=== PATIENT | female | born 1935 | race Caucasian/White ===

== ENCOUNTER 2017-12-30 22:30 | Inpatient (IN) | payer MEDICARE, SELFPAY ==
[2017-12-30 22:32] VITALS: BP 144/85; PULSE 62; RESP 16; O2SAT 95; BMI 30.1
--- NOTE | 2017-12-30 22:47 | RAD_ITS ---
STUDY: X-RAY CHEST REASON FOR EXAM: Female, 82 years old. Status post fall. Preop. TECHNIQUE: Single AP portable view of the chest. COMPARISON: 06/15/2016. FINDINGS: There is mild chronic interstitial prominence in the lungs. There is no demonstrated acute pulmonary infiltrate. There is no demonstrated pleural abnormality. Normal size heart. Normal mediastinum and wesly. Normal visualized pulmonary arteries. There is atherosclerotic calcification of the aortic arch with tortuosity. Normal visualized thoracic spine. Normal visualized ribs, clavicles, and shoulders. There is no demonstrated abnormality of the visualized soft tissue structures of the upper abdomen. RAD/Chest 1 View (Portable) IMPRESSION: Mild chronic interstitial changes. No evidence for acute cardiopulmonary pathology. Electronically Signed: Maxx Jarvis MD at 0:12 EDT , Service support ,
--- NOTE | 2017-12-30 22:48 | EKG12_ITS ---
Test Reason : FALL Blood Pressure : / mmHG Vent. Rate : 059 BPM Atrial Rate : 059 BPM P-R Int : 152 ms QRS Dur : 084 ms QT Int : 410 ms P-R-T Axes : 076 015 071 degrees QTc Int : 405 ms Sinus bradycardia Otherwise normal ECG Confirmed by HILL TOLEDO, KAJAL ([id number]), editor farm journal DISHA ARCOS ([id number]) on 01/01/2018 1:43:07 PM Referred By: RADHA Confirmed By:KAJAL ALEJANDRE MD
--- NOTE | 2017-12-30 22:49 | RAD_ITS ---
STUDY: X-RAY - PELVIS AND LEFT HIP REASON FOR EXAM: Female, 82 years old. Status post fall. Pain. TECHNIQUE: Radiological exam, hip, unilateral, with pelvis, 3 views. COMPARISON: None. FINDINGS: There is a non-specific bowel gas pattern. Normal visualized soft tissue structures. Normal bilateral iliac wings, sacroiliac joints and visualized sacrum. Normal bilateral superior and inferior pubic rami. Normal pubic symphysis. Normal bilateral ischial tuberosities. There is an acute traumatic fracture through the base of the left femoral neck with impaction into the intertrochanteric region, and with angulation convex laterally. Normal visualized femoral head. Normal acetabulum. There is mild articular joint space narrowing of the hip. RAD/Hip 2-3 Views with Pelvis IMPRESSION: Impacted and angulated fracture through the base of the left femoral neck. Mild degenerative arthrosis of the left hip. Electronically Signed: Maxx Jarvis MD at 0:17 EDT , Service support ,
[2017-12-30] MEDS: 0.9% Normal Saline 1,000 ML 150 ML IV (23:00)
[2017-12-30] MEDS: HYDROmorphone 1 MG/ML Syringe 0.5 MG IV (23:00)
[2017-12-30] MEDS: Ondansetron 4 MG/2 ML Vial IV (23:00)
--- NOTE | 2017-12-30 23:18 | ED.DCSUM_ITS ---
- ER Visit Summary Date of Service: 12/30/17 Chief Complaint: Injury left hip status post fall History of Present Illness: The patient is a 82 F who attempted to ambulate without walker. She fell. She injured her left hip. She was unable to get up from the floor. She states she did hit her head on the bed frame. She denies loss consciousness, headache or being dazed. She denies any nausea or vomiting presently. She states she was nauseous initially secondary to the pain. She denies any ocular, visual or auditory symptoms. She 90 trouble with speech or swallowing. She denies neck pain. She denies paresthesia, anesthesia motor weakness. She denies chest pain, palpitations or rapid heart rate. She denies shortness of breath, cough, orthopnea or PND. She denies any abdominal pain. She denies back pain. She is on no anticoagulant and denies bruising easily. She denies angioedema or swelling. She reports allergy to morphine. Reaction is unknown. She denies any urologic symptoms. She denies neck or back pain. Physical Examination: Pleasant elderly woman who appears uncomfortable. Blood pressure is elevated 144/85. Head is atraumatic normocephalic. Pupils are equal round reactive. Extraocular muscles are intact. TMs are pearly white with landmarks noted. Nares patent with no drainage. Posterior pharynx without erythema or exudate. Uvula is midline. There is no dysphonia or dysphasia. Trachea is midline. There is no stridor with auscultation of the neck. Heart is regular without murmur, gallop or rub. S1 and S2 are normal. Lungs are clear to auscultation with good movement of air bilaterally. Abdomen is soft nontender. There is a palpable, pulsatile mass or abdominal bruit. The left lower extremity is shortened and externally rotated. There is significant shortening. DP is pulses palpable bilaterally and symmetric. She is alert oriented ?3. Motor is 5/5. Sensations intact. Cranial 2 through 12 are intact. Test Results: EKG reveals sinus bradycardia with a rate of 59, otherwise normal. Single view chest x-ray reveals minimal chronic changes. The film is rotated and reason there are increased markings on the right compared to left. Three-view x-ray of the hip was obtained and reveals an intertrochanteric fracture. White count elevated 17.8 thousand with no bandemia or shift. Electro panel is unremarkable. Glucose is elevated at 115. Coags are normal. Emergency Department Course and Treatment: IV was established she was medicated with 4 mg of Zofran and 0.5 mg of Dilaudid. She states she is able to take tramadol, Vicodin and Percocet without reaction. Appropriate blood work for preoperative clearance was ordered including type and screen. Treatment Plan: The hospitalist was paged and Dr. Bonifacio Mendez director motion picture for Dr. Benoit was paged since the patient will need to be admitted and have an ORIF to repair her left intertrochanteric fracture. Disposition: Full admission MedSurg Impression: 1. Left intertrochanteric fracture secondary to fall, initial encounter 2. History of hypertension This note was generated with [employer] dictation software. It may contain incorrect words, spelling, and punctuation that were not noted in review of the chart prior to signing ED Disposition - Plan for ED Patient: Chief Complaint: Lower Extremity Injury Referrals: Krystyna Bang MD [Primary Care Provider] -
[2017-12-30 23:21] LABS: Absolute Lymphocyte Count 3.19 X10^3/ul (0.83-4.51); Absolute Neutrophil Count 13.5 X10^3/uL (2.0-7.7); Basophil# 0.03 X10^3/uL; Basophil% 0.2 % (0-1); Eosinophil# 0.13 X10^3/uL; Eosinophils% 0.7 % (0-5); Hematocrit 44.1 % (37-47); Hemoglobin 14.5 g/dl (12.0-15.0); Lymphocyte # 3.19 X10^3/ul (4.0); Lymphocyte % 17.9 % (19-41); Mean Corp Hgb Conc 32.9 g/gl (32-36); Mean Corpuscular Hgb 31.7 pg (27.0-32.0); Mean Corpuscular Volume 96.3 fL (81-99); Monocyte# 0.91 X10^3/uL; Monocyte% 5.1 % (0-10); Neutrophil % 75.7 % (47-70); Platelet Count 216 K/mm3 (150-450); RBC Distribution Width CV 13.6 % (11.6-14.6); RBC Distribution Width SD 47.4 fl (35.1-43.9); Red Blood Count 4.58 M/mm3 (4.2-5.4); White Blood Count 17.8 K/mm3 (4.4-11.0)
[2017-12-30 23:22] LABS: POSITIVE COUNT NO; POSITIVE DIFFERENTIAL NO; POSITIVE MORPHOLOGY NO
[2017-12-30 23:23] LABS: Prothrombin Time (Protime)PT. 12.8 SECONDS (11.7-14.9)
[2017-12-30 23:24] LABS: Partial Thromboplast Time 30.9 Seconds (24.1-36.2)
[2017-12-30 23:29] LABS: Anion Gap 7 (5-15); BUN 18 mg/dL (7-18); BUN/Creat Ratio 23.9 RATIO (10-20); Calcium,Total 8.9 mg/dL (8.5-10.1); Chloride 107 mmol/L (98-107); Creatinine, Serum 0.75 mg/dL (0.55-1.02); EST Glomerular Filtration Rate 78 mL/min (>60); Est Glom Filt Rate - Afr Amer 95 mL/min (>60); Estimated Creatinine Clearance 31.15 ml/min; Glucose 115 mg/dL (74-106); Potassium 4.4 mmol/L (3.5-5.1); Sodium Level 142 mmol/L (136-145)
--- NOTE | 2017-12-30 23:42 | NURSING ---
PAGED DR. KEENE AT [phone]
--- NOTE | 2017-12-30 23:51 | PCM.HP.STD ---
Problem List (1) Fracture, intertrochanteric, left femur Status: Acute (2) Hypertension Status: Chronic History of Present Illness Date of Admission: 12/30/17 Chief Complaint: Left intertrochanteric fracture The patient is a 82 year old female w/ h/o HTN admitted for left intertrochanteric fracture secondary to mechanical fall. She was in bed and tried to walk without her walker. She fell and landed on her left hip with her leg being crossed. She did not lose consciousness or have any other symptoms. After the fall, she was unable to get up secondary to the pain. The pain was severe and dull aching. Movement made it worse. Rest helped with the pain. Pain was constant and immediate after the fall. She did not lose any function or sensation in the legs. Past Medical History Past Medical History (Chronic Problems): Chronic Problems History of recurrent bowel obstruction (Chronic) Hypertension (Chronic) Allergies morphine Allergy (Verified 06/15/16 09:26) states crashed after receiving it in hospital happened in the Home Medications: Ambulatory Orders Medication Instructions Recorded Metoprolol Tartrate [Lopressor] 150 mg PO DINNER 04/19/16 Ramipril [Altace] 10 mg PO QHS 04/19/16 Surgical History: cholecystectomy, - - Surgery for small bowel obstruction ?2. Psychiatric History: No pertinent psych hx [employer] History: No pertinent [employer] history Smoking Status: Former smoker Alcohol: None Drugs: None - *Family History Maternal History Items: No pertinent history Paternal History Items: No pertinent history Review of Systems Constitutional: Denies: Chills, Fever, Weight Change HEENT: Denies: Head Aches, Sinus Congestion, Sinus Drainage Cardiovascular: Denies: Chest Pain, Palpitations Respiratory: Denies: Cough, Shortness of breath at rest, Sputum production Gastrointestinal: Denies: Abdominal Pain, Nausea, Vomiting Genitourinary: Denies: Dysuria Musculoskeletal: Denies: Joint Pain, Joint Tenderness Skin: Denies: Rash, Wounds Neurological: Denies: Numbness, Tingling, Focal weakness Psychiatric: Denies: Anxiety, Depression, Homicidal Ideations, Suicidal Ideations Hematologic/ Lymphatic: Denies: Easy Bruising, Easy Bleeding VTE Information - Inpt Only VTE Present on Admission: No VTE Mechan Device Prophylaxis: SCD's VTE Pharm Prophylaxis ordered?: No Patient Problems: Active and Suspected Problems Fracture, intertrochanteric, left femur (Acute) - Physical Exam General: Alert, Oriented x3, Cooperative HEENT: Atraumatic, PERRLA, EOMI, Normocephalic Neck: Supple, No JVD, Negative Carotid Bruits Lungs: Clear to auscultation, Normal air movement Cardiovascular: Regular rate, No murmurs Abdomen: Bowel Sounds Present, Soft, Non Tender Extremities: No edema, Capillary Refill Less than 3 Seconds Skin: No rashes, No breakdown Musculoskeletal: No Tenderness to Palpation of Joints or Extremities Neurological: Cranial nerves II-XII grossly intact Psych/Mental Status: Normal Affect, Appropriate Vital Signs Pulse Resp BP Pulse Ox 62 16 144/85 H 95 12/30/17 22:32 12/30/17 22:32 12/30/17 22:32 12/30/17 22:32 Oxygen Delivery Method Room Air Weight: 69.9 kg Body Mass Index (BMI) 30.1 Laboratory Tests Past 24 Hrs 12/30/17 12/30/17 12/30/17 22:45 22:45 22:45 WBC 17.8 H RBC 4.58 Hgb 14.5 Hct 44.1 MCV 96.3 MCH 31.7 MCHC 32.9 RDW 13.6 RDW Differential 47.4 H Plt Count 216 MPV 11.0 Immature Gran % (Auto) 0.400 Neut % (Auto) 75.7 H Lymph % (Auto) 17.9 L [place] % (Auto) 5.1 Eos % (Auto) 0.7 Baso % (Auto) 0.2 Absolute Neuts (auto) 13.5 H Absolute Lymphs (auto) 3.19 Total Counted Not Reportable PT 12.8 INR 1.0 APTT 30.9 Sodium 142 Potassium 4.4 Chloride 107 Carbon Dioxide 28.0 Anion Gap 7 BUN 18 Creatinine 0.75 Estim Creat Clear Calc 31.15 Est GFR (MDRD) Af Amer 95 Est GFR (MDRD) Non-Af 78 BUN/Creatinine Ratio 23.9 H Glucose 115 H Calcium 8.9 Blood Type Antibody Screen 12/30/17 22:45 WBC RBC Hgb Hct MCV MCH MCHC RDW RDW Differential Plt Count MPV Immature Gran % (Auto) Neut % (Auto) Lymph % (Auto) Cloud % (Auto) Eos % (Auto) Baso % (Auto) Absolute Neuts (auto) Absolute Lymphs (auto) Total Counted PT INR APTT Sodium Potassium Chloride Carbon Dioxide Anion Gap BUN Creatinine Estim Creat Clear Calc Est GFR (MDRD) Af Amer Est GFR (MDRD) Non-Af BUN/Creatinine Ratio Glucose Calcium Blood Type Pending Antibody Screen Pending Assessment/Plan Active and Suspected Problems Fracture, intertrochanteric, left femur (Acute) 82 year old female w/ h/o HTN admitted for left intertrochanteric fracture secondary to mechanical fall. 1) Left intertrochanteric fracture secondary to mechanical fall: Pain controlled with IV dilaudid. Morphine allergy is uncleared as pt tolerated dilaudid. No lost of sensation or motor. INR wnl. EKG unremarkable. No active cardiac or pulmonary issues. Ortho consulted for possible surgery in AM. 2) HTN: Resume home meds. Monitor. 3) Leukocytosis: Likely secondary to stressor. No e/o infection. Repeat labs in AM. 4) Prophylaxis: SCD
[2017-12-30 23:56] VITALS: BP 172/80; PULSE 64; RESP 17; TEMP 36.4; O2SAT 99
[2017-12-31] VITALS (20 sets, daily range): BP systolic 107–168; BP diastolic 46–94; PULSE 61–90; RESP 17–20; TEMP 36.7–37.7; O2SAT 85–100; BMI 30.4
[2017-12-31] MEDS: Bupivacaine Mpf 0.5% 30 ML VIAL INFILT (00:27)
[2017-12-31] MEDS: 0.9% Normal Saline 1,000 ML 125 ML IV ×2 (02:13→07:21)
[2017-12-31] MEDS: HYDROmorphone 1 MG/ML Syringe IV ×2 (02:23→07:32)
[2017-12-31 05:38] LABS: Absolute Neutrophil Count 12.9 X10^3/uL (2.0-7.7); Basophil# 0.02 X10^3/uL; Basophil% 0.1 % (0-1); Eosinophil# 0.04 X10^3/uL; Eosinophils% 0.3 % (0-5); Hematocrit 39.3 % (37-47); Lymphocyte % 9.8 % (19-41); Mean Corp Hgb Conc 33.1 g/gl (32-36); Mean Corpuscular Hgb 31.9 pg (27.0-32.0); Mean Corpuscular Volume 96.3 fL (81-99); Mean Platelet Vol. 10.9 fl (6.2-12.0); Monocyte% 5.9 % (0-10); Neutrophil # 12.88 X10^3/uL (2.7-7.7); Neutrophil % 83.6 % (47-70); Platelet Count 195 K/mm3 (150-450); RBC Distribution Width CV 13.3 % (11.6-14.6); RBC Distribution Width SD 46.3 fl (35.1-43.9); Red Blood Count 4.08 M/mm3 (4.2-5.4); White Blood Count 15.4 K/mm3 (4.4-11.0)
[2017-12-31 05:57] LABS: Anion Gap 9 (5-15); BUN 18 mg/dL (7-18); BUN/Creat Ratio 27.6 RATIO (10-20); Calcium,Total 8.2 mg/dL (8.5-10.1); Chloride 108 mmol/L (98-107); Creatinine, Serum 0.65 mg/dL (0.55-1.02); EST Glomerular Filtration Rate 92 mL/min (>60); Est Glom Filt Rate - Afr Amer 112 mL/min (>60); Estimated Creatinine Clearance 31.15 ml/min; Glucose 129 mg/dL (74-106); Sodium Level 143 mmol/L (136-145)
[2017-12-31 06:03] LABS: POSITIVE COUNT NO; POSITIVE DIFFERENTIAL NO; POSITIVE MORPHOLOGY NO
[2017-12-31] MEDS: 0.9% NaCl Peripheral Flush Adult/Peds IV (07:32)
--- NOTE | 2017-12-31 08:30 | PCM.PROGNOTE ---
Patient Problems: Active and Suspected Problems Fracture, intertrochanteric, left femur (Acute) Subjective: Chief complaint: Follow-up after admission for impacted and angulated left femoral neck fracture. Patient seen and examined. No acute events overnight. She still complaining of left hip pain upon movement. Denied any other complaints. Her blood pressure slightly elevated, other vital signs are stable. - Physical Exam General: Alert, Oriented x3, Cooperative, - - She is in moderate pain. HEENT: Atraumatic, PERRLA, EOMI Oral: Moist Mucosa, No Gingival or Mucosal Lesions/ Ulcerations Neck: Supple, No JVD, Negative Carotid Bruits, Trachea Midline, Thyroid Normal Size and Texture Lungs: Clear to auscultation, No rhonchi, No wheeze, No rales, Diminished Cardiovascular: Regular rate, Regular Rhythm, Normal S1, Normal S2, PMI Normal Abdomen: Bowel Sounds Present, Soft, Non Tender, Non-Distended, No Hepato-splenomegaly Extremities: No clubbing, No cyanosis, No edema Skin: No rashes, No breakdown Lymphatic: No Cervical, Supraclavicular, or Inguinal Adenopathy Neurological: Cranial nerves II-XII grossly intact, Motor Exam 5/5 strength throughout Psych/Mental Status: Normal Affect, Appropriate, Alert and oriented to time, place, person, mood and affect Vital Signs Temp Pulse Resp BP Pulse Ox 99.9 F H 81 18 130/57 H 94 12/31/17 07:24 12/31/17 07:24 12/31/17 07:24 12/31/17 07:24 12/31/17 07:24 Oxygen Flow Rate (L/min) 2 Oxygen Delivery Method Room Air Weight: 155 lb 11.464 oz Body Mass Index (BMI) 30.4 Intake and Output for Last 24 Hours 12/29/17 12/30/17 12/31/17 23:59 23:59 23:59 Intake Total 463 / 463 Output Total 400 / 400 Balance 63 / 63 Laboratory Tests Past 24 Hrs 12/31/17 12/31/17 05:10 05:10 WBC 15.4 H RBC 4.08 L Hgb 13.0 Hct 39.3 MCV 96.3 MCH 31.9 MCHC 33.1 RDW 13.3 RDW Differential 46.3 H Plt Count 195 MPV 10.9 Immature Gran % (Auto) 0.300 Neut % (Auto) 83.6 H Lymph % (Auto) 9.8 L [place] % (Auto) 5.9 Eos % (Auto) 0.3 Baso % (Auto) 0.1 Absolute Neuts (auto) 12.9 H Absolute Lymphs (auto) 1.50 Total Counted Not Reportable Sodium 143 Potassium 4.0 Chloride 108 H Carbon Dioxide 26.0 Anion Gap 9 BUN 18 Creatinine 0.65 Estim Creat Clear Calc 31.15 Est GFR (MDRD) Af Amer 112 Est GFR (MDRD) Non-Af 92 BUN/Creatinine Ratio 27.6 H Glucose 129 H Calcium 8.2 L Clinical Impression(s) from Imaging Studies Chest X-Ray 12/30/17 22:47 IMPRESSION: Mild chronic interstitial changes. No evidence for acute cardiopulmonary pathology. Electronically Signed: Maxx Jarvis MD at 0:12 EDT , Service support , Hip/Pelvis X-Ray 12/30/17 22:49 IMPRESSION: Impacted and angulated fracture through the base of the left femoral neck. Mild degenerative arthrosis of the left hip. Electronically Signed: Maxx Jarvis MD at 0:17 EDT , Service support , Medical Necessity - Tobacco Use Smoking Status: Former smoker Assessment/Plan Active and Suspected Problems Fracture, intertrochanteric, left femur (Acute) This is an 82 years old female patient presented to the medicine because of fall and left hip pain, found to have acute traumatic impacted and angulated left femoral neck fracture as well as leukocytosis. #1 mechanical fall/acute traumatic impacted and angulated left femoral neck fracture: She is on IV hydromorphone and [place] for pain as needed. Her blood pressure slightly elevated likely because of pain. Other vital signs are stable. Routine blood work is remarkable for leukocytosis, otherwise normal. Orthopedic surgery consulted, plan for surgery probably later today. #2 leukocytosis: This is probably reactive to stress and pain. She denies any symptoms suggestive of infection. Chest x-ray showed no infiltrate, consolidation or effusion. She denies any urinary symptoms. Plan to monitor for fever, repeat CBC tomorrow morning. #3 preoperative evaluation: She does have a history only for hypertension. She lives alone, partially dependent, she drives her car and she does have a lady come to her house to help her doing her daily activities. She denied chest pain or shortness of breath on ambulation. EKG revealed normal sinus rhythm without evidence of cardiac arrhythmias or ischemic changes. Chest x-ray showed no acute findings. In June,, she was admitted because of left arm pain and there was questionable unstable angina for which she underwent nuclear stress test that was normal without evidence of stress-induced myocardial ischemia and with preserved ejection fraction. According to her age, functional status, serum creatinine and type of surgery, her estimated risk for perioperative myocardial infarction or cardiac arrest is 0.42%. No indication for further cardiac workup. Will proceed with surgery at this time. #4 hypertension: Blood pressure has been slightly elevated likely because of pain. Continue metoprolol and Altace, start IV hydrazine as needed. #5 history of recurrent small bowel obstruction: Stable, no acute issues. Patient denies any abdominal pain or obstipation. #6 DVT prophylaxis: SCDs. This note was generated with [employer] dictation software. It may contain incorrect words, spelling, and punctuation that were not noted in checking the note before signing. Code Visit Inpatient E&M: 47370 Subs Hosp L2
--- NOTE | 2017-12-31 08:34 | PN_ITS ---
Patient Problems: Active and Suspected Problems Fracture, intertrochanteric, left femur (Acute) Subjective: Chief complaint: Follow-up after admission for impacted and angulated left femoral neck fracture. Patient seen and examined. No acute events overnight. She still complaining of left hip pain upon movement. Denied any other complaints. Her blood pressure slightly elevated, other vital signs are stable. - Physical Exam General: Alert, Oriented x3, Cooperative, - - She is in moderate pain. HEENT: Atraumatic, PERRLA, EOMI Oral: Moist Mucosa, No Gingival or Mucosal Lesions/ Ulcerations Neck: Supple, No JVD, Negative Carotid Bruits, Trachea Midline, Thyroid Normal Size and Texture Lungs: Clear to auscultation, No rhonchi, No wheeze, No rales, Diminished Cardiovascular: Regular rate, Regular Rhythm, Normal S1, Normal S2, PMI Normal Abdomen: Bowel Sounds Present, Soft, Non Tender, Non-Distended, No Hepato- splenomegaly Extremities: No clubbing, No cyanosis, No edema Skin: No rashes, No breakdown Lymphatic: No Cervical, Supraclavicular, or Inguinal Adenopathy Neurological: Cranial nerves II-XII grossly intact, Motor Exam 5/5 strength throughout Psych/Mental Status: Normal Affect, Appropriate, Alert and oriented to time, place, person, mood and affect Vital Signs Temp Pulse Resp BP Pulse Ox 99.9 F H 81 18 130/57 H 94 12/31/17 07:24 12/31/17 07:24 12/31/17 07:24 12/31/17 07:24 12/31/17 07:24 Oxygen Flow Rate (L/min) 2 Oxygen Delivery Method Room Air Weight: 155 lb 11.464 oz Body Mass Index (BMI) 30.4 Intake and Output for Last 24 Hours 12/29/17 12/30/17 12/31/17 23:59 23:59 23:59 Intake Total 463 / 463 Output Total 400 / 400 Balance 63 / 63 Laboratory Tests Past 24 Hrs 12/31/17 12/31/17 05:10 05:10 WBC 15.4 H RBC 4.08 L Hgb 13.0 Hct 39.3 MCV 96.3 MCH 31.9 MCHC 33.1 RDW 13.3 RDW Differential 46.3 H Plt Count 195 MPV 10.9 Immature Gran % (Auto) 0.300 Neut % (Auto) 83.6 H Lymph % (Auto) 9.8 L [place] % (Auto) 5.9 Eos % (Auto) 0.3 Baso % (Auto) 0.1 Absolute Neuts (auto) 12.9 H Absolute Lymphs (auto) 1.50 Total Counted Not Reportable Sodium 143 Potassium 4.0 Chloride 108 H Carbon Dioxide 26.0 Anion Gap 9 BUN 18 Creatinine 0.65 Estim Creat Clear Calc 31.15 Est GFR (MDRD) Af Amer 112 Est GFR (MDRD) Non-Af 92 BUN/Creatinine Ratio 27.6 H Glucose 129 H Calcium 8.2 L Clinical Impression(s) from Imaging Studies Chest X-Ray 12/30/17 22:47 IMPRESSION: Mild chronic interstitial changes. No evidence for acute cardiopulmonary pathology. Electronically Signed: Maxx Jarvis MD at 0:12 EDT , Service support , Hip/Pelvis X-Ray 12/30/17 22:49 IMPRESSION: Impacted and angulated fracture through the base of the left femoral neck. Mild degenerative arthrosis of the left hip. Electronically Signed: Maxx Jarvis MD at 0:17 EDT , Service support , Medical Necessity - Tobacco Use Smoking Status: Former smoker Assessment/Plan Active and Suspected Problems Fracture, intertrochanteric, left femur (Acute) This is an 82 years old female patient presented to the medicine because of fall and left hip pain, found to have acute traumatic impacted and angulated left femoral neck fracture as well as leukocytosis. #1 mechanical fall/acute traumatic impacted and angulated left femoral neck fracture: She is on IV hydromorphone and [place] for pain as needed. Her blood pressure slightly elevated likely because of pain. Other vital signs are stable. Routine blood work is remarkable for leukocytosis, otherwise normal. Orthopedic surgery consulted, plan for surgery probably later today. #2 leukocytosis: This is probably reactive to stress and pain. She denies any symptoms suggestive of infection. Chest x-ray showed no infiltrate, consolidation or effusion. She denies any urinary symptoms. Plan to monitor for fever, repeat CBC tomorrow morning. #3 preoperative evaluation: She does have a history only for hypertension. She lives alone, partially dependent, she drives her car and she does have a lady come to her house to help her doing her daily activities. She denied chest pain or shortness of breath on ambulation. EKG revealed normal sinus rhythm without evidence of cardiac arrhythmias or ischemic changes. Chest x-ray showed no acute findings. In June,, she was admitted because of left arm pain and there was questionable unstable angina for which she underwent nuclear stress test that was normal without evidence of stress-induced myocardial ischemia and with preserved ejection fraction. According to her age , functional status, serum creatinine and type of surgery, her estimated risk for perioperative myocardial infarction or cardiac arrest is 0.42%. No indication for further cardiac workup. Will proceed with surgery at this time. #4 hypertension: Blood pressure has been slightly elevated likely because of pain. Continue metoprolol and Altace, start IV hydrazine as needed. #5 history of recurrent small bowel obstruction: Stable, no acute issues. Patient denies any abdominal pain or obstipation. #6 DVT prophylaxis: SCDs. This note was generated with [employer] dictation software. It may contain incorrect words, spelling, and punctuation that were not noted in checking the note before signing. Code Visit Inpatient E&M: 85776 Subs Hosp L2
--- NOTE | 2017-12-31 08:48 | CON.PCM_ITS ---
Reason for Consult Date of Consultation: 12/31/17 Reason for Consultation: Left hip pain History of Present Illness: The patient is a 82 year old F that fell at home in her bedroom. She states that she was attempting to change out of her hindu attire and into her nightgown. She was able to use her life alert button to call for assistance and squad. She does ambulate at home with use of a cane or walker and sometimes furniture walking. She lives at home alone. Her daughter lives very close to her. She has severe pain in her left hip. She also complains of some mild pain in her left shoulder Past Medical History Past Medical History (Chronic Problems): Chronic Problems Small bowel obstruction (Chronic) History of recurrent bowel obstruction (Chronic) Hypertension (Chronic) Allergies morphine Allergy (Verified 12/31/17 03:35) states crashed after receiving it in hospital happened in the Home Medications: Ambulatory Orders Medication Instructions Recorded Metoprolol Tartrate [Lopressor] 150 mg PO DINNER 04/19/16 Ramipril [Altace] 10 mg PO QHS 04/19/16 Surgical History: cholecystectomy, - - Surgery for small bowel obstruction ?2. Psychiatric History: No pertinent psych hx FENCE SETTER History: No pertinent FENCE SETTER history Smoking Status: Former smoker Alcohol: None Drugs: None - *Family History Maternal History Items: No pertinent history Paternal History Items: No pertinent history Review of Systems Constitutional: Denies: Chills, Fever, Weight Change HEENT: Denies: Head Aches, Sinus Congestion, Sinus Drainage Cardiovascular: Denies: Chest Pain, Palpitations Respiratory: Denies: Cough, Shortness of breath at rest, Sputum production Gastrointestinal: Denies: Abdominal Pain, Nausea, Vomiting Genitourinary: Denies: Dysuria Musculoskeletal: Reports: - - See history of present illness Skin: Denies: Rash, Wounds Neurological: Denies: Numbness, Tingling, Focal weakness Psychiatric: Denies: Anxiety, Depression, Homicidal Ideations, Suicidal Ideations Patient Problems: Active and Suspected Problems Fracture, intertrochanteric, left femur (Acute) - Physical Exam General: Alert, Oriented x3, Cooperative HEENT: Atraumatic, PERRLA, EOMI, Normocephalic Neck: Supple, No JVD Lungs: Normal air movement Cardiovascular: Regular rate Abdomen: Soft, Non Tender, Non-Distended Skin: No rashes, No breakdown Musculoskeletal: - - The left lower extremity is flexed externally rotated and shortened. She is able to wiggle all of her toes. No calf pain is elicited. Dorsalis pedis pulses 2+. Logroll is severely positive. Unable to assess range of motion of the hip and knee secondary to severe pain. Normal movement of the ankle. Secondary survey is negative for pain in the right lower extremity and right upper extremity. She is able to flex her left shoulder however this is sore and does cause some discomfort and pain Neurological: Cranial nerves II-XII grossly intact Psych/Mental Status: Normal Affect, Appropriate Vital Signs Temp Pulse Resp BP Pulse Ox 99.9 F H 81 18 130/57 H 94 12/31/17 07:24 12/31/17 07:24 12/31/17 07:24 12/31/17 07:24 12/31/17 07:24 Oxygen Flow Rate (L/min) 2 Oxygen Delivery Method Room Air Weight: 155 lb 11.464 oz Body Mass Index (BMI) 30.4 Intake and Output for Last 24 Hours 12/29/17 12/30/17 12/31/17 23:59 23:59 23:59 Intake Total 463 / 463 Output Total 400 / 400 Balance 63 / 63 Laboratory Tests Past 24 Hrs 12/31/17 12/31/17 05:10 05:10 WBC 15.4 H RBC 4.08 L Hgb 13.0 Hct 39.3 MCV 96.3 MCH 31.9 MCHC 33.1 RDW 13.3 RDW Differential 46.3 H Plt Count 195 MPV 10.9 Immature Gran % (Auto) 0.300 Neut % (Auto) 83.6 H Lymph % (Auto) 9.8 L [place] % (Auto) 5.9 Eos % (Auto) 0.3 Baso % (Auto) 0.1 Absolute Neuts (auto) 12.9 H Absolute Lymphs (auto) 1.50 Total Counted Not Reportable Sodium 143 Potassium 4.0 Chloride 108 H Carbon Dioxide 26.0 Anion Gap 9 BUN 18 Creatinine 0.65 Estim Creat Clear Calc 31.15 Est GFR (MDRD) Af Amer 112 Est GFR (MDRD) Non-Af 92 BUN/Creatinine Ratio 27.6 H Glucose 129 H Calcium 8.2 L Assessment/Plan Active and Suspected Problems Fracture, intertrochanteric, left femur (Acute) Left intertrochanteric femur fracture Left shoulder pain Personally reviewed patient's x-rays. She has an intertrochanteric femur fracture which is very close to basicervical femoral neck fracture. We will treat this as an intertrochanteric femur fracture and perform a closed reduction with open internal fixation using cephalo-medullary nail. I discussed this with the patient at length. Risks of surgery were discussed at length. Risks including but not limited to infection, bleeding, injury to muscles, tendons, nerves, arteries, failure surgery, nonunion, malunion, loss of life or limb. Also discussed possibility of nonsurgical treatment which would require bed rest for approximately 3 months. Patient does wish to accept the risks of surgery and proceed with surgical correction.
--- NOTE | 2017-12-31 10:13 | CASEMGMT ---
Social Work Assessment Referral Date: 12/31 Date of Assessment: 12/31 Reason for consult: Hip Fracture, possible placement after discharge Informant: Self-referral SW met with pt to complete initial assessment. SW introduced self and role at [facility]. Pt was alert and orientated x4. PT's two daughters were in the room as well. PT states that she lives alone in a one story home. Pt states that she has a chair lift, cane and walker at home. Pt states that one of her daughters live [address] and the other one lives in [facility]. Pt states that she was previously able to cook for herself but states that she has a lady that comes in once a week to assist with cleaning. Pt states that the lady is through [facility] and that her name is Deborah Hamilton. SW placed call to [facility] but [facility] states that her name is not coming up in their system. SW asked pt about discharge plan, informed pt that usually after coming to [facility] with a hip fracture, typically a pt will go to a half-way facility after discharge for rehabilitation. Pt was receptive to this stating that she would like to go to [facility]. SW asked if [facility] doesn't work does she have a second option would be [facility]. SW faxed clinicals to [facility]. SW place call to Yolanda at [facility] and informed her of referral and that PT, OT has not yet seen pt but as soon as they do SW will fax PT, OT notes to her. SW will continue to follow. Intervention: Initial assessment to determine needs and discharge plans. PT, OT will assist in discharge planning to determine discharge plans. Plan: [facility] pending Pre-cert Elsy Aldridge POSTAL CARRIER, POSTAL SORTING OFFICER
--- NOTE | 2017-12-31 11:27 | CASEMGMT ---
Social Work Note Met with pt and pt's daughter to ask if they have a number for pt's brooke Deborah Hamilton. Per pt and daughter's they don't have a number for Deborah but states that they left a door on the note stating that pt was in hospital. Social Work will continue to follow for discharge planning. Elsy Aldridge EVENT SPECIALIST FOOD DEMONSTRATOR, SOLAR INSTALLATION TECHNICIAN
--- NOTE | 2017-12-31 12:58 | NURSING ---
PLACED ON 2L O2 VIA NC
--- NOTE | 2017-12-31 14:00 | NURSING ---
REPORT CALLED TO MARC BELL IN AC PT TO [facility] VIA BED
[2017-12-31] MEDS: Cefazolin 1 GM/50 ML BAG IV (15:50)
--- NOTE | 2017-12-31 15:58 | PCM.OPRPT ---
Report of Operation Date of Procedure: 12/31/17 Pre-Operative Diagnosis: Intertrochanteric femur fracture left Post-Operative Diagnosis: Intertrochanteric femur fracture left Surgery/Procedure Performed:: Closed reduction with open internal fixation using cephalo-medullary nail left femur Description of Surgical Findings:: Intertrochanteric femur fracture/basicervical femoral neck fracture ocean forwarder: Michael Miranda Type of Anesthesia:: General Anesthesiologist: Vazquez Rosas Estimated Blood Loss (mL): 150 Fluids Replaced: See anesthesia report Description of Procedure: Implants: Be nephew InterTAN 125? valgus 34 cm x 11/2 mm, 95 mm lag screw and 47-1/2 mm distal locking screw Procedure description: The patient was greeted in the preoperative area. The left lower extremity was marked with surgical marker. Preoperative antibiotics were administered. The patient was then placed in supine position on a fracture table, a padded perineal post was utilized, all bony prominences were well-padded. Patient's leg was then secured in the fracture leg echols and the well leg was placed in the well-leg echols both were well-padded. Closed reduction maneuver was then performed under biplanar fluoroscopic imaging. Once anatomic alignment of the fracture was confirmed the leg was prepped and draped in usual sterile fashion. Surgical timeout was performed and surgery was commenced. Fluoroscopic imaging was used to identify the tip of the greater trochanter. A 3 cm incision was then made 3 cm above the tip of the greater trochanter and a guidepin was then placed at the junction of the anterior one third and posterior two thirds of the greater trochanter. This was then placed intramedullary. an opening reamer was then used and a ball-tipped guidewire was then placed to the superior pole of the patella and measured. Sequential reaming was then commenced over the ball-tipped guidewire to the appropriate diameter and where chatter was identified. Appropriate size InterTAN was then placed on the guide handle on the operating table and confirmed to be appropriately placed. This was then inserted into the body over the ball-tipped guidewire to the appropriate depth. A stab incision was then made on lateral aspect of the thigh for placement of the lag screw which was then placed in center-center position confirmed in both AP and lateral. This was then measured. A derotational step drill was then used and a derotation bar was then placed. Lag screw reamer was then used over the guidepin and the lag screw was then placed into subchondral bone with tip to apex distance less than 25 mm on both the AP and lateral. The insertion handle was then removed after the compression screw was applied. Attention was then turned to the distal fixation. A perfect rosebud technique was used and a screw was then placed from lateral to medial through the eccentric hole distally. This was drilled measured and a screw was placed with excellent purchase. Final imaging was obtained with fluoroscopic imaging AP and lateral. The wounds were then irrigated with copious irrigation and closed in layers with 2-0 Vicryl and surgical yakov. A well-padded nonadherent dressing is applied patient was taken to recovery room in stable condition. Postoperatively patient may be weightbearing as tolerated without restrictions - Complications none known - Admit VTE Documentation VTE Present on Admission: Yes VTE Mechan Device Prophylaxis: SCD's, Thigh High YAYO Cagle VTE Pharm Prophylaxis ordered?: Yes
--- NOTE | 2017-12-31 16:00 | RAD_ITS ---
STUDY: X-RAY - PELVIS AND LEFT HIP REASON FOR EXAM: Female, 82 years old. LEFT HIP NAILING TECHNIQUE: Radiological exam, hip, unilateral, with pelvis when performed; 2 or 3 views. COMPARISON: None. FINDINGS: Total knee arthroplasty. Intramedullary priyanka in place. There is anatomic alignment. RAD/Hip Min 2 Views (Portable) IMPRESSION: Successful placement of an intramedullary priyanka. Electronically Signed: Lopez Fisher MD at 17:47 EDT , Service support ,
--- NOTE | 2017-12-31 18:42 | SUR.PHASEII ---
AT 1825, ONCE DAUGHTERS WERE LOCATED, NOTIFIED THAT PATIENT BEING TRANSFERRED BACK TO [facility] FROM PACU.
[2017-12-31] MEDS: 0.9% Normal Saline 1,000 ML 100 ML IV (18:54)
[2017-12-31 19:18] LABS: Hemoglobin 11.9 g/dl (12.0-15.0); Mean Corp Hgb Conc 33.1 g/gl (32-36); Mean Corpuscular Hgb 32.2 pg (27.0-32.0); Mean Corpuscular Volume 97.3 fL (81-99); Mean Platelet Vol. 10.5 fl (6.2-12.0); Platelet Count 179 K/mm3 (150-450); RBC Distribution Width CV 13.7 % (11.6-14.6); RBC Distribution Width SD 49.1 fl (35.1-43.9); White Blood Count 18.6 K/mm3 (4.4-11.0)
[2017-12-31 19:19] LABS: Scan Indicated on CBC? Y/N NO
[2017-12-31 20:04] LABS: Creatinine, Serum 0.48 mg/dL (0.55-1.02); EST Glomerular Filtration Rate 131 mL/min (>60); Est Glom Filt Rate - Afr Amer 158 mL/min (>60); Estimated Creatinine Clearance 31.15 ml/min
[2018-01-01] VITALS (12 sets, daily range): BP systolic 102–126; BP diastolic 49–62; PULSE 62–89; RESP 18–20; TEMP 36.7–37.8; O2SAT 92–99; BMI 30.4
[2018-01-01] MEDS: Cefazolin 1 GM/50 ML BAG IV ×2 (00:16→08:04)
[2018-01-01] MEDS: HYDROcodone Bitartrate/Apap 5/325 Tablet PO ×4 (05:49→20:38)
[2018-01-01] MEDS: Enoxaparin 40 MG/0.4 ML Syringe SC (06:33)
--- NOTE | 2018-01-01 07:41 | PN.ORTHO_ITS ---
Patient Problems: Active and Suspected Problems Fracture, intertrochanteric, left femur (Acute) Subjective: Steph is doing fairly well. She is slightly sluggish from her pain medication today. She states her pain is improved. She denies any chest pain or shortness of breath Objective: Dressings are clean and dry. Logroll is mildly positive for pain in the hip as expected after surgery. No calf pain is noted. She is able to wiggle all of her toes. Dorsalis pedis pulses 1+ - Physical Exam Vital Signs Temp Pulse Resp BP Pulse Ox 99.9 F H 78 18 106/49 L 97 01/01/18 02:40 01/01/18 07:26 01/01/18 02:40 01/01/18 02:40 01/01/18 02:40 Oxygen Flow Rate (L/min) 2 Oxygen Delivery Method Nasal Cannula Weight: 155 lb 11.47 oz Body Mass Index (BMI) 30.4 Intake and Output for Last 24 Hours 12/30/17 12/31/17 01/01/18 23:59 23:59 23:59 Intake Total 2875 / 2875 1294 / 1294 Output Total 1125 / 1125 525 / 525 Balance 1750 / 1750 769 / 769 Laboratory Tests Past 24 Hrs 12/31/17 12/31/17 18:09 18:09 WBC 18.6 H RBC 3.70 L Hgb 11.9 L Hct 36.0 L MCV 97.3 MCH 32.2 H MCHC 33.1 RDW 13.7 RDW Differential 49.1 H Plt Count 179 MPV 10.5 Creatinine 0.48 L Estim Creat Clear Calc 31.15 Est GFR (MDRD) Af Amer 158 Est GFR (MDRD) Non-Af 131 Medical Necessity - Tobacco Use Smoking Status: Former smoker Assessment/Plan Active and Suspected Problems Fracture, intertrochanteric, left femur (Acute) Postop day 1 placement of cephalo-medullary nail left femur. She is doing fairly well. Given the patient's social situation and home living situation I would anticipate that she will require placement to a senior care or acute rehab. We will have the patient follow-up in my office in approximately 2 weeks
[2018-01-01] MEDS: 0.9% NaCl Peripheral Flush Adult/Peds IV ×2 (08:03→21:04)
--- NOTE | 2018-01-01 10:28 | PCM.PROGNOTE ---
Patient Problems: Active and Suspected Problems Fracture, intertrochanteric, left femur (Acute) Subjective: Patient feels well, still having pain in the left hip, but improving. S/P closed reduction with open internal fixation using cephalo-medullary nail left femur on 12/31/17. - Physical Exam General: Alert, Oriented x3, Cooperative, Well developed, Well nourished HEENT: Atraumatic, PERRLA, EOMI, Normocephalic Oral: Moist Mucosa Neck: Supple, No JVD, Negative Carotid Bruits, Negative Hepatojugular Reflux, No Nodes Lungs: Clear to auscultation, Normal air movement, No rhonchi, No wheeze, No rales Cardiovascular: Regular rate, Regular Rhythm, Normal S1, Normal S2, No murmurs, No Ectopic Activity Abdomen: Bowel Sounds Present, Soft, Non Tender, Non-Distended, No Hepato-splenomegaly Extremities: No clubbing, No cyanosis, No edema Skin: No rashes, No breakdown Musculoskeletal: Tenderness - left hip. Lymphatic: No Cervical, Supraclavicular, or Inguinal Adenopathy Neurological: Cranial nerves II-XII grossly intact, Neuro grossly intact Psych/Mental Status: Normal Affect Vital Signs Temp Pulse Resp BP Pulse Ox 98.0 F 82 18 104/62 92 01/01/18 08:05 01/01/18 08:05 01/01/18 08:05 01/01/18 08:05 01/01/18 08:05 Oxygen Flow Rate (L/min) 2 Oxygen Delivery Method Room Air Weight: 155 lb 11.47 oz Body Mass Index (BMI) 30.4 Intake and Output for Last 24 Hours 12/30/17 12/31/17 01/01/18 23:59 23:59 23:59 Intake Total 2875 / 2875 1294 / 1294 Output Total 1125 / 1125 525 / 525 Balance 1750 / 1750 769 / 769 Laboratory Tests Past 24 Hrs 12/31/17 12/31/17 18:09 18:09 WBC 18.6 H RBC 3.70 L Hgb 11.9 L Hct 36.0 L MCV 97.3 MCH 32.2 H MCHC 33.1 RDW 13.7 RDW Differential 49.1 H Plt Count 179 MPV 10.5 Creatinine 0.48 L Estim Creat Clear Calc 31.15 Est GFR (MDRD) Af Amer 158 Est GFR (MDRD) Non-Af 131 Diagnostic Data Chest X-Ray 12/30/17 22:47 IMPRESSION: Mild chronic interstitial changes. No evidence for acute cardiopulmonary pathology. Electronically Signed: Maxx Jarvis MD at 0:12 EDT , Service support , Hip/Pelvis X-Ray 12/30/17 22:49 IMPRESSION: Impacted and angulated fracture through the base of the left femoral neck. Mild degenerative arthrosis of the left hip. Electronically Signed: Maxx Jarvis MD at 0:17 EDT , Service support , Hip X-Ray 12/31/17 16:00 IMPRESSION: Successful placement of an intramedullary priyanka. Electronically Signed: Lopez Fisher MD at 17:47 EDT , Service support , Medical Necessity - Tobacco Use Smoking Status: Former smoker Assessment/Plan Active and Suspected Problems Fracture, intertrochanteric, left femur (Acute) This is an 82 years old female patient presented to the medicine because of fall and left hip pain, found to have acute traumatic impacted and angulated left femoral neck fracture as well as leukocytosis. #1 mechanical fall/acute traumatic impacted and angulated left femoral neck fracture: S/P closed reduction with open internal fixation using cephalo-medullary nail left femur on 12/31/17. Doing well post-op. Continue current pain medications. PT/OT in progress. #2 leukocytosis: No signs of infection. WBC is still elevated post-op. WBC normal on 04/20/17. Continue to monitor. #3 hypertension: Blood pressure has been slightly elevated likely because of pain. Continue metoprolol and Altace, start IV hydrazine as needed. #4 history of recurrent small bowel obstruction: Stable, no acute issues. Patient denies any abdominal pain or obstipation. DVT prophylaxis: SCD / Lovenox SQ vte prophylaxis dosage per ortho. GI prophylaxis: ppi po. Patient is full code. Disposition: SNF for rehab. Code Visit Inpatient E&M: 76197 Subs Hosp L2
--- NOTE | 2018-01-01 10:35 | PN_ITS ---
Patient Problems: Active and Suspected Problems Fracture, intertrochanteric, left femur (Acute) Subjective: Patient feels well, still having pain in the left hip, but improving. S/P closed reduction with open internal fixation using cephalo-medullary nail left femur on 12/31/17. - Physical Exam General: Alert, Oriented x3, Cooperative, Well developed, Well nourished HEENT: Atraumatic, PERRLA, EOMI, Normocephalic Oral: Moist Mucosa Neck: Supple, No JVD, Negative Carotid Bruits, Negative Hepatojugular Reflux, No Nodes Lungs: Clear to auscultation, Normal air movement, No rhonchi, No wheeze, No rales Cardiovascular: Regular rate, Regular Rhythm, Normal S1, Normal S2, No murmurs, No Ectopic Activity Abdomen: Bowel Sounds Present, Soft, Non Tender, Non-Distended, No Hepato- splenomegaly Extremities: No clubbing, No cyanosis, No edema Skin: No rashes, No breakdown Musculoskeletal: Tenderness - left hip. Lymphatic: No Cervical, Supraclavicular, or Inguinal Adenopathy Neurological: Cranial nerves II-XII grossly intact, Neuro grossly intact Psych/Mental Status: Normal Affect Vital Signs Temp Pulse Resp BP Pulse Ox 98.0 F 82 18 104/62 92 01/01/18 08:05 01/01/18 08:05 01/01/18 08:05 01/01/18 08:05 01/01/18 08:05 Oxygen Flow Rate (L/min) 2 Oxygen Delivery Method Room Air Weight: 155 lb 11.47 oz Body Mass Index (BMI) 30.4 Intake and Output for Last 24 Hours 12/30/17 12/31/17 01/01/18 23:59 23:59 23:59 Intake Total 2875 / 2875 1294 / 1294 Output Total 1125 / 1125 525 / 525 Balance 1750 / 1750 769 / 769 Laboratory Tests Past 24 Hrs 12/31/17 12/31/17 18:09 18:09 WBC 18.6 H RBC 3.70 L Hgb 11.9 L Hct 36.0 L MCV 97.3 MCH 32.2 H MCHC 33.1 RDW 13.7 RDW Differential 49.1 H Plt Count 179 MPV 10.5 Creatinine 0.48 L Estim Creat Clear Calc 31.15 Est GFR (MDRD) Af Amer 158 Est GFR (MDRD) Non-Af 131 Diagnostic Data Chest X-Ray 12/30/17 22:47 IMPRESSION: Mild chronic interstitial changes. No evidence for acute cardiopulmonary pathology. Electronically Signed: Maxx Jarvis MD at 0:12 EDT , Service support , Hip/Pelvis X-Ray 12/30/17 22:49 IMPRESSION: Impacted and angulated fracture through the base of the left femoral neck. Mild degenerative arthrosis of the left hip. Electronically Signed: Maxx Jarvis MD at 0:17 EDT , Service support , Hip X-Ray 12/31/17 16:00 IMPRESSION: Successful placement of an intramedullary priyanka. Electronically Signed: Lopez Fisher MD at 17:47 EDT , Service support , Medical Necessity - Tobacco Use Smoking Status: Former smoker Assessment/Plan Active and Suspected Problems Fracture, intertrochanteric, left femur (Acute) This is an 82 years old female patient presented to the medicine because of fall and left hip pain, found to have acute traumatic impacted and angulated left femoral neck fracture as well as leukocytosis. #1 mechanical fall/acute traumatic impacted and angulated left femoral neck fracture: S/P closed reduction with open internal fixation using cephalo-medullary nail left femur on 12/31/17. Doing well post-op. Continue current pain medications. PT/OT in progress. #2 leukocytosis: No signs of infection. WBC is still elevated post-op. WBC normal on 04/20/17. Continue to monitor. #3 hypertension: Blood pressure has been slightly elevated likely because of pain. Continue metoprolol and Altace, start IV hydrazine as needed. #4 history of recurrent small bowel obstruction: Stable, no acute issues. Patient denies any abdominal pain or obstipation. DVT prophylaxis: SCD / Lovenox SQ vte prophylaxis dosage per ortho. GI prophylaxis: ppi po. Patient is full code. Disposition: SNF for rehab. Code Visit Inpatient E&M: 73278 Subs Hosp L2
--- NOTE | 2018-01-01 10:53 | CASEMGMT ---
Social Work Note Faxed PT/OT evaluations to SNF. Placed call to Yolanda to update and per Yolanda once the evaluations are through she will initiate pre-cert. Plan: [facility] pending pre-cert. Gayla Gonzalez, CLINIC LPN, CURTAIN CLEANER
[2018-01-01] MEDS: Metoprolol Tartrate 50 MG Tablet 150 MG PO (16:41)
[2018-01-01] MEDS: Ramipril 10 MG Capsule PO (21:01)
[2018-01-02] VITALS (8 sets, daily range): BP systolic 95–147; BP diastolic 55–82; PULSE 56–76; RESP 18–20; TEMP 36.9–37.7; O2SAT 93–100; BMI 30.4
[2018-01-02] MEDS: HYDROmorphone 1 MG/ML Syringe IV (02:44)
[2018-01-02] MEDS: 0.9% NaCl Peripheral Flush Adult/Peds IV (02:49)
[2018-01-02] MEDS: Acetaminophen 500 MG Tablet 1000 MG PO ×2 (05:51→14:10)
[2018-01-02] MEDS: oxyCODONE 5 MG Tablet PO ×2 (05:52→12:23)
[2018-01-02] MEDS: Enoxaparin 40 MG/0.4 ML Syringe SC (05:52)
[2018-01-02 05:54] LABS: Absolute Lymphocyte Count 1.19 X10^3/ul (0.83-4.51); Absolute Neutrophil Count 8.2 X10^3/uL (2.0-7.7); Basophil# 0.02 X10^3/uL; Basophil% 0.2 % (0-1); Eosinophil# 0.31 X10^3/uL; Hematocrit 30.8 % (37-47); Hemoglobin 10.1 g/dl (12.0-15.0); Lymphocyte # 1.19 X10^3/ul (4.0); Lymphocyte % 11.4 % (19-41); Mean Corp Hgb Conc 32.8 g/gl (32-36); Mean Corpuscular Hgb 31.6 pg (27.0-32.0); Mean Corpuscular Volume 96.3 fL (81-99); Mean Platelet Vol. 11.1 fl (6.2-12.0); Monocyte# 0.75 X10^3/uL; Monocyte% 7.2 % (0-10); Neutrophil # 8.15 X10^3/uL (2.7-7.7); Neutrophil % 77.9 % (47-70); Platelet Count 133 K/mm3 (150-450); RBC Distribution Width CV 13.4 % (11.6-14.6); RBC Distribution Width SD 45.1 fl (35.1-43.9); White Blood Count 10.5 K/mm3 (4.4-11.0)
[2018-01-02 06:03] LABS: POSITIVE COUNT NO; POSITIVE DIFFERENTIAL NO; POSITIVE MORPHOLOGY NO
[2018-01-02 06:26] LABS: Anion Gap 7 (5-15); BUN 12 mg/dL (7-18); BUN/Creat Ratio 20.1 RATIO (10-20); Calcium,Total 7.7 mg/dL (8.5-10.1); Chloride 109 mmol/L (98-107); EST Glomerular Filtration Rate 102 mL/min (>60); Est Glom Filt Rate - Afr Amer 124 mL/min (>60); Estimated Creatinine Clearance 31.15 ml/min; Glucose 134 mg/dL (74-106); Potassium 3.6 mmol/L (3.5-5.1); Sodium Level 140 mmol/L (136-145)
--- NOTE | 2018-01-02 07:55 | PCM.PROGNOTE ---
Patient Problems: Active and Suspected Problems Fracture, intertrochanteric, left femur (Acute) Subjective: Patient feels fair, still having left hip pain with movement. Pain is somewhat better. PT/OT in progress. No other issues. - Physical Exam General: Alert, Oriented x3, Cooperative, Well developed, Well nourished HEENT: Atraumatic, PERRLA, EOMI, Normocephalic Oral: Moist Mucosa Neck: Supple, No JVD, Negative Carotid Bruits, Negative Hepatojugular Reflux, No Nodes Lungs: Clear to auscultation, Normal air movement, No rhonchi, No wheeze, No rales Cardiovascular: Regular rate, Regular Rhythm, Normal S1, Normal S2, No murmurs, No Ectopic Activity Abdomen: Bowel Sounds Present, Soft, Non Tender, Non-Distended, No Hepato-splenomegaly Extremities: No clubbing, No cyanosis, No edema Skin: No rashes, No breakdown Musculoskeletal: Tenderness - left hip. Lymphatic: No Cervical, Supraclavicular, or Inguinal Adenopathy Neurological: Cranial nerves II-XII grossly intact, Neuro grossly intact Psych/Mental Status: Normal Affect - Physical Exam Vital Signs Temp Pulse Resp BP Pulse Ox 98.7 F 62 20 H 147/71 H 94 01/02/18 02:45 01/02/18 03:00 01/02/18 02:45 01/02/18 02:45 01/02/18 02:45 Oxygen Flow Rate (L/min) 2 Oxygen Delivery Method Nasal Cannula Weight: 155 lb 11.47 oz Body Mass Index (BMI) 30.4 Intake and Output for Last 24 Hours 12/31/17 01/01/18 01/02/18 23:59 23:59 23:59 Intake Total 2875 / 2875 1294 / 1294 410 / 410 Output Total 1125 / 1125 1075 / 1075 Balance 1750 / 1750 219 / 219 410 / 410 Laboratory Tests Past 24 Hrs 01/02/18 01/02/18 05:20 05:20 WBC 10.5 RBC 3.20 L Hgb 10.1 L Hct 30.8 L MCV 96.3 MCH 31.6 MCHC 32.8 RDW 13.4 RDW Differential 45.1 H Plt Count 133 L MPV 11.1 Immature Gran % (Auto) 0.300 Neut % (Auto) 77.9 H Lymph % (Auto) 11.4 L [place] % (Auto) 7.2 Eos % (Auto) 3.0 Baso % (Auto) 0.2 Absolute Neuts (auto) 8.2 H Absolute Lymphs (auto) 1.19 Total Counted Not Reportable Sodium 140 Potassium 3.6 Chloride 109 H Carbon Dioxide 24.0 Anion Gap 7 BUN 12 Creatinine 0.60 Estim Creat Clear Calc 31.15 Est GFR (MDRD) Af Amer 124 Est GFR (MDRD) Non-Af 102 BUN/Creatinine Ratio 20.1 H Glucose 134 H Calcium 7.7 L Diagnostic Data Chest X-Ray 12/30/17 22:47 IMPRESSION: Mild chronic interstitial changes. No evidence for acute cardiopulmonary pathology. Electronically Signed: Maxx Jarvis MD at 0:12 EDT , Service support , Hip/Pelvis X-Ray 12/30/17 22:49 IMPRESSION: Impacted and angulated fracture through the base of the left femoral neck. Mild degenerative arthrosis of the left hip. Electronically Signed: Maxx Jarvis MD at 0:17 EDT , Service support , Hip X-Ray 12/31/17 16:00 IMPRESSION: Successful placement of an intramedullary priyanka. Electronically Signed: Lopez Fisher MD at 17:47 EDT , Service support , Medical Necessity - Tobacco Use Smoking Status: Former smoker Assessment/Plan Active and Suspected Problems Fracture, intertrochanteric, left femur (Acute) This is an 82 years old female patient presented to the medicine because of fall and left hip pain, found to have acute traumatic impacted and angulated left femoral neck fracture as well as leukocytosis. #1 mechanical fall/acute traumatic impacted and angulated left femoral neck fracture: S/P closed reduction with open internal fixation using cephalo-medullary nail left femur on 12/31/17. Doing well post-op. Continue current pain medications. PT/OT in progress. #2 leukocytosis: No signs of infection. WBC is still elevated post-op. WBC normalized. Likely due to stress from injury. #3 hypertension, essential, benign: Blood pressure has been slightly elevated likely because of pain. Continue metoprolol and Altace, start IV hydrazine as needed. #4 history of recurrent small bowel obstruction: Stable, no acute issues. Patient denies any abdominal pain or obstipation. Tolerating regular consistency meals. DVT prophylaxis: SCD / Lovenox SQ vte prophylaxis dosage per ortho. GI prophylaxis: ppi po. Patient is full code. Disposition: SNF for rehab. Code Visit Inpatient E&M: 46299 Subs Hosp L2
--- NOTE | 2018-01-02 08:02 | PN_ITS ---
Patient Problems: Active and Suspected Problems Fracture, intertrochanteric, left femur (Acute) Subjective: Patient feels fair, still having left hip pain with movement. Pain is somewhat better. PT/OT in progress. No other issues. - Physical Exam General: Alert, Oriented x3, Cooperative, Well developed, Well nourished HEENT: Atraumatic, PERRLA, EOMI, Normocephalic Oral: Moist Mucosa Neck: Supple, No JVD, Negative Carotid Bruits, Negative Hepatojugular Reflux, No Nodes Lungs: Clear to auscultation, Normal air movement, No rhonchi, No wheeze, No rales Cardiovascular: Regular rate, Regular Rhythm, Normal S1, Normal S2, No murmurs, No Ectopic Activity Abdomen: Bowel Sounds Present, Soft, Non Tender, Non-Distended, No Hepato- splenomegaly Extremities: No clubbing, No cyanosis, No edema Skin: No rashes, No breakdown Musculoskeletal: Tenderness - left hip. Lymphatic: No Cervical, Supraclavicular, or Inguinal Adenopathy Neurological: Cranial nerves II-XII grossly intact, Neuro grossly intact Psych/Mental Status: Normal Affect - Physical Exam Vital Signs Temp Pulse Resp BP Pulse Ox 98.7 F 62 20 H 147/71 H 94 01/02/18 02:45 01/02/18 03:00 01/02/18 02:45 01/02/18 02:45 01/02/18 02:45 Oxygen Flow Rate (L/min) 2 Oxygen Delivery Method Nasal Cannula Weight: 155 lb 11.47 oz Body Mass Index (BMI) 30.4 Intake and Output for Last 24 Hours 12/31/17 01/01/18 01/02/18 23:59 23:59 23:59 Intake Total 2875 / 2875 1294 / 1294 410 / 410 Output Total 1125 / 1125 1075 / 1075 Balance 1750 / 1750 219 / 219 410 / 410 Laboratory Tests Past 24 Hrs 01/02/18 01/02/18 05:20 05:20 WBC 10.5 RBC 3.20 L Hgb 10.1 L Hct 30.8 L MCV 96.3 MCH 31.6 MCHC 32.8 RDW 13.4 RDW Differential 45.1 H Plt Count 133 L MPV 11.1 Immature Gran % (Auto) 0.300 Neut % (Auto) 77.9 H Lymph % (Auto) 11.4 L [place] % (Auto) 7.2 Eos % (Auto) 3.0 Baso % (Auto) 0.2 Absolute Neuts (auto) 8.2 H Absolute Lymphs (auto) 1.19 Total Counted Not Reportable Sodium 140 Potassium 3.6 Chloride 109 H Carbon Dioxide 24.0 Anion Gap 7 BUN 12 Creatinine 0.60 Estim Creat Clear Calc 31.15 Est GFR (MDRD) Af Amer 124 Est GFR (MDRD) Non-Af 102 BUN/Creatinine Ratio 20.1 H Glucose 134 H Calcium 7.7 L Diagnostic Data Chest X-Ray 12/30/17 22:47 IMPRESSION: Mild chronic interstitial changes. No evidence for acute cardiopulmonary pathology. Electronically Signed: Maxx Jarvis MD at 0:12 EDT , Service support , Hip/Pelvis X-Ray 12/30/17 22:49 IMPRESSION: Impacted and angulated fracture through the base of the left femoral neck. Mild degenerative arthrosis of the left hip. Electronically Signed: Maxx Jarvis MD at 0:17 EDT , Service support , Hip X-Ray 12/31/17 16:00 IMPRESSION: Successful placement of an intramedullary priyanka. Electronically Signed: Lopez Fisher MD at 17:47 EDT , Service support , Medical Necessity - Tobacco Use Smoking Status: Former smoker Assessment/Plan Active and Suspected Problems Fracture, intertrochanteric, left femur (Acute) This is an 82 years old female patient presented to the medicine because of fall and left hip pain, found to have acute traumatic impacted and angulated left femoral neck fracture as well as leukocytosis. #1 mechanical fall/acute traumatic impacted and angulated left femoral neck fracture: S/P closed reduction with open internal fixation using cephalo-medullary nail left femur on 12/31/17. Doing well post-op. Continue current pain medications. PT/OT in progress. #2 leukocytosis: No signs of infection. WBC is still elevated post-op. WBC normalized. Likely due to stress from injury. #3 hypertension, essential, benign: Blood pressure has been slightly elevated likely because of pain. Continue metoprolol and Altace, start IV hydrazine as needed. #4 history of recurrent small bowel obstruction: Stable, no acute issues. Patient denies any abdominal pain or obstipation. Tolerating regular consistency meals. DVT prophylaxis: SCD / Lovenox SQ vte prophylaxis dosage per ortho. GI prophylaxis: ppi po. Patient is full code. Disposition: SNF for rehab. Code Visit Inpatient E&M: 30759 Subs Hosp L2
[2018-01-02] MEDS: LORazepam 0.5 MG Tablet PO (08:28)
[2018-01-02] MEDS: Senna/Docusate Sodium 1 Tablet 2 TABLET PO (08:29)
--- NOTE | 2018-01-02 08:48 | CASEMGMT ---
Social Work Note Faxed updated clinicals to [facility] SW will continue to follow. Plan: Discharge to [facility] for continued rehabilitation pending pre-cert. Elsy Aldridge STUNNER ANIMAL, HISTORIC INTERPRETER
--- NOTE | 2018-01-02 12:04 | PN.ORTHO_ITS ---
Patient Problems: Active and Suspected Problems Fracture, intertrochanteric, left femur (Acute) Subjective: Patient is frustrated today with her progress. She does not feel that she is ambulating well and making much improvement. She was also notified this morning of the sudden of her grandson from a massive coronary event Objective: Neurovascularly intact. Dressings are in place without drainage. No evidence of infection is noted. - Physical Exam Vital Signs Temp Pulse Resp BP Pulse Ox 98.6 F 58 L 18 95/82 H 100 01/02/18 07:56 01/02/18 09:50 01/02/18 07:56 01/02/18 07:56 01/02/18 07:56 Oxygen Flow Rate (L/min) 2 Oxygen Delivery Method Nasal Cannula Weight: 155 lb 11.47 oz Body Mass Index (BMI) 30.4 Intake and Output for Last 24 Hours 12/31/17 01/01/18 01/02/18 23:59 23:59 23:59 Intake Total 2875 / 2875 1294 / 1294 410 / 410 Output Total 1125 / 1125 1075 / 1075 Balance 1750 / 1750 219 / 219 410 / 410 Laboratory Tests Past 24 Hrs 01/02/18 01/02/18 05:20 05:20 WBC 10.5 RBC 3.20 L Hgb 10.1 L Hct 30.8 L MCV 96.3 MCH 31.6 MCHC 32.8 RDW 13.4 RDW Differential 45.1 H Plt Count 133 L MPV 11.1 Immature Gran % (Auto) 0.300 Neut % (Auto) 77.9 H Lymph % (Auto) 11.4 L [place] % (Auto) 7.2 Eos % (Auto) 3.0 Baso % (Auto) 0.2 Absolute Neuts (auto) 8.2 H Absolute Lymphs (auto) 1.19 Total Counted Not Reportable Sodium 140 Potassium 3.6 Chloride 109 H Carbon Dioxide 24.0 Anion Gap 7 BUN 12 Creatinine 0.60 Estim Creat Clear Calc 31.15 Est GFR (MDRD) Af Amer 124 Est GFR (MDRD) Non-Af 102 BUN/Creatinine Ratio 20.1 H Glucose 134 H Calcium 7.7 L Medical Necessity - Tobacco Use Smoking Status: Former smoker Assessment/Plan Active and Suspected Problems Fracture, intertrochanteric, left femur (Acute) Patient is postop day #2 placement of cephalo-medullary nail left femur. Continue with anticoagulation and pain control. Continue with physical and Occupational Therapy. At this point patient is welcome to follow-up in my office in approximately 2 weeks for repeat x-rays as well as removal of the yakov
--- NOTE | 2018-01-02 12:30 | CASEMGMT ---
Social Work Note Placed call to Yolanda at [facility]. Left requesting a return phone call regarding status of pre-cert. SW to continue to follow and assist with discharge planning. Gayla Gonzalez, CHECKOUT SUPERVISOR, QUARTZ ORIENTATOR
--- NOTE | 2018-01-02 12:37 | CASEMGMT ---
Social Work Note Call from Yolanda Santoyo at [facility] stating that authorization has been obtained. Physician updated and anticipate discharge this date. Plan: [facility] for rehabilitation this date. Gayla Gonzalez, SENIOR BRANCH MANAGER, METAL WORKER
--- NOTE | 2018-01-02 13:00 | PCM.TXEXTCAR ---
- Diet 01/01/18 07:30 Diet: Regular Diet Is pt able to select menu?: Yes - Wound(s) LEFT HIP, PROXIMAL Wound Type: Surgical Incision Dressing Change: Dry Sterile Dressing LEFT HIP, DISTAL Wound Type: Surgical Incision Dressing Change: Dry Sterile Dressing LEFT HIP, MID Wound Type: Surgical Incision - Therapies Weight Bearing: Weight bearing as tolerated - Allergies/Procedures Done in Hospital Allergies/Adverse Reactions: Allergies morphine Allergy (Verified 12/31/17 03:35) states crashed after receiving it in hospital happened in the s - Type of Care/Length of Stay Estimated LOS: Convalescent Care Less Than 30 days Type of Care Needed: Skilled Rehab Potential: Good Prognosis: Good - Additional Orders/Day of Discharge Day of Discharge: 01/02/18 - Dietary and Speech Recommendations Dietitian Recommendations/Changes: Rec adv diet as tolerated to regular. - Follow Up Care Primary Care Physician: Krystyna Bang MD [Primary Care Provider] - Please Follow Up With: Bonifacio Mendez, When: in 2 weeks.
--- NOTE | 2018-01-02 13:02 | PCM.DC.SUM ---
Discharge Date and Diagnosis - Problem List Patient Problems: Active and Suspected Problems Fracture, intertrochanteric, left femur (Acute) Date of Admission: 12/30/17 Date of Discharge: 01/02/18 - Primary Discharge Diagnosis Active and Suspected Problems Fracture, intertrochanteric, left femur (Acute) - Secondary Discharge Diagnosis Chronic Problems Small bowel obstruction (Chronic) History of recurrent bowel obstruction (Chronic) Hypertension (Chronic) Hospital Course and Treatment Operations: - - S/P closed reduction with open internal fixation using cephalo-medullary nail left femur on 12/31/17. Procedures: None Summary of Care Provided: This is an 82 years old female patient presented to the medicine because of fall and left hip pain, found to have acute traumatic impacted and angulated left femoral neck fracture as well as leukocytosis. #1 mechanical fall/acute traumatic impacted and angulated left femoral neck fracture: S/P closed reduction with open internal fixation using cephalo-medullary nail left femur on 12/31/17. Doing well post-op. Continue current pain medications. PT/OT in progress, doing well. Plan to continue rehab at [facility], [place]. Follow up with orthopedic surgery in 2 weeks. #2 leukocytosis: No signs of infection. WBC is still elevated post-op. WBC normalized. Likely due to stress from injury. #3 hypertension, essential, benign: Blood pressure has been slightly elevated likely because of pain. Continue metoprolol and Altace, start IV hydrazine as needed. #4 history of recurrent small bowel obstruction: Stable, no acute issues. Patient denies any abdominal pain or obstipation. Tolerating regular consistency meals. #5 Anxiety, reactive. Her grandson had unexpectedly. Sig Ativan 0.5 mg tid prn. DVT prophylaxis: SCD / Lovenox SQ vte prophylaxis dosage per ortho. GI prophylaxis: ppi po. Patient is full code. Disposition: SNF for rehab ([facility]) Discharge Diet: No Restrictions Discharge Activity: Return to Normal Activity Home Medications: Medications to take at Discharge Metoprolol Tartrate [Lopressor] 150 mg PO DINNER 04/19/16 Ramipril [Altace] 10 mg PO QHS 04/19/16 Enoxaparin [Lovenox] 40 mg SC DAILY@0600 syringe 01/02/18 Lorazepam [Ativan] 0.5 mg PO Q8H PRN PRN #9 tab 01/02/18 Oxycodone [Oxyir] 5 mg PO Q4H PRN PRN 7 Days #20 tab 01/02/18 Following Prescrptions Were Given to Patient: Oxycodone [Oxyir] 5 mg PO Q4H PRN PRN 7 Days #20 tab PRN Reason: Severe Pain (6-1010) Lorazepam [Ativan] 0.5 mg PO Q8H PRN PRN #9 tab PRN Reason: ANXIETY Primary Care Physician: Krystyna Bang MD [Primary Care Provider] - Please Follow Up With: Bonifacio Mendez, DO When: in 2 weeks. Disposition: [facility] facility Minutes spent on discharge:: 30 Patient Condition:: Good Medical Necessity - Tobacco Use Smoking Status: Former smoker Meaningful Use Info Meaningful Use Diagnoses (Choose all that apply): None applicable Code Visit Inpatient E&M: 06950 Disch Hosp
--- NOTE | 2018-01-02 13:06 | DS.PCM_ITS ---
Discharge Date and Diagnosis - Problem List Patient Problems: Active and Suspected Problems Fracture, intertrochanteric, left femur (Acute) Date of Admission: 12/30/17 Date of Discharge: 01/02/18 - Primary Discharge Diagnosis Active and Suspected Problems Fracture, intertrochanteric, left femur (Acute) - Secondary Discharge Diagnosis Chronic Problems Small bowel obstruction (Chronic) History of recurrent bowel obstruction (Chronic) Hypertension (Chronic) Hospital Course and Treatment Operations: - - S/P closed reduction with open internal fixation using cephalo- medullary nail left femur on 12/31/17. Procedures: None Summary of Care Provided: This is an 82 years old female patient presented to the medicine because of fall and left hip pain, found to have acute traumatic impacted and angulated left femoral neck fracture as well as leukocytosis. #1 mechanical fall/acute traumatic impacted and angulated left femoral neck fracture: S/P closed reduction with open internal fixation using cephalo-medullary nail left femur on 12/31/17. Doing well post-op. Continue current pain medications. PT/OT in progress, doing well. Plan to continue rehab at [facility], [place]. Follow up with orthopedic surgery in 2 weeks. #2 leukocytosis: No signs of infection. WBC is still elevated post-op. WBC normalized. Likely due to stress from injury. #3 hypertension, essential, benign: Blood pressure has been slightly elevated likely because of pain. Continue metoprolol and Altace, start IV hydrazine as needed. #4 history of recurrent small bowel obstruction: Stable, no acute issues. Patient denies any abdominal pain or obstipation. Tolerating regular consistency meals. #5 Anxiety, reactive. Her grandson had unexpectedly. Sig Ativan 0.5 mg tid prn. DVT prophylaxis: SCD / Lovenox SQ vte prophylaxis dosage per ortho. GI prophylaxis: ppi po. Patient is full code. Disposition: SNF for rehab ([facility]) Discharge Diet: No Restrictions Discharge Activity: Return to Normal Activity Home Medications: Medications to take at Discharge Metoprolol Tartrate [Lopressor] 150 mg PO DINNER 04/19/16 Ramipril [Altace] 10 mg PO QHS 04/19/16 Enoxaparin [Lovenox] 40 mg SC DAILY@0600 syringe 01/02/18 Lorazepam [Ativan] 0.5 mg PO Q8H PRN PRN #9 tab 01/02/18 Oxycodone [Oxyir] 5 mg PO Q4H PRN PRN 7 Days #20 tab 01/02/18 Following Prescrptions Were Given to Patient: Oxycodone [Oxyir] 5 mg PO Q4H PRN PRN 7 Days #20 tab PRN Reason: Severe Pain (6-1010) Lorazepam [Ativan] 0.5 mg PO Q8H PRN PRN #9 tab PRN Reason: ANXIETY Primary Care Physician: Krystyna Bang MD [Primary Care Provider] - Please Follow Up With: Bonifacio Mendez, DO When: in 2 weeks. Disposition: [facility] facility Minutes spent on discharge:: 30 Patient Condition:: Good Medical Necessity - Tobacco Use Smoking Status: Former smoker Meaningful Use Info Meaningful Use Diagnoses (Choose all that apply): None applicable Code Visit Inpatient E&M: 90454 Disch Hosp
--- NOTE | 2018-01-02 14:04 | CASEMGMT ---
Social Work Note Pre-cert was approved and pt will be discharging to [facility] today. PRAVIN faxed transfer summary, medication list, and scripts to [facility]. Transportation is set up through [facility] for 15:30. PRAVIN informed pt, RN Minoo and Yolanda at [facility] of transportation time. HENS completed. Originals placed in SNF folder and copies on chart. Plan: Discharge to [facility] today. Elsy Aldridge LATENT PRINT EXAMINER, ORCHARD PRUNER
--- NOTE | 2018-01-02 15:07 | NURSING ---
REPORT CALLED TO NENA @ [facility]
== END 2018-01-02 15:49 | disposition skilled nursing facility (03) | DRG 482 ==
LOC: ED 23:01 → MS3 12-31 01:02
PROVIDERS: Orthopaedic Surgery; Admitting Provider Internal Medicine; Emergency Provider Emergency Medicine; Family Provider Family Medicine; PCP Family Medicine; Visit Provider Hospitalist
PROC: 0QS706Z Reposition Left Upper Femur with Intramedullary Internal Fixation Device, Open Approach (ICD-10-PCS; CPT 27245; principal; 2017-12-31 07:00)
DX: S72.142A Displaced intertrochanteric fracture of left femur, initial encounter for closed fracture (principal); I10 Essential (primary) hypertension; W19.XXXA Unspecified fall, initial encounter; Y92.009 Unspecified place in unspecified non-institutional (private) residence as the place of occurrence of the external cause; Z87.891 Personal history of nicotine dependence
CPT/HCPCS: 36415; 51702; 71045; 73502; 76000; 80048; 82565; 85025; 85027; 85610; 85730; 86850; 86900; 93005; 97163; 97166; 97530; 97535; 97802; 99285; J7030; A4216; J2405

== ENCOUNTER → 2018-12-04 10:41 | Outpatient (CLI) | payer MEDICARE, SELFPAY ==
--- NOTE | 2018-12-04 11:04 | BI_ITS ---
MAMMOGRAPHY - BILATERAL SCREENING REASON FOR EXAM: Female, 83 years old. Routine annual screening examination. PERTINENT HISTORY: Non-contributory. TECHNIQUE: Digital bilateral breast reid (3D mammographic acquisition) in the CC and MLO projections. 2-D mediolateral oblique (MLO) and craniocaudad (CC) views of both breasts were obtained. CAD: Full Field Digital Mammography with Computer Added Detection was performed. COMPARISON: Comparison is made with prior study dated October 10, 2017 and September 29, 2016. FINDINGS: Breast Composition: The breasts are almost entirely fatty. There are no dominant masses or suspicious calcifications. No other significant abnormalities are identified. There has been no significant change since the prior study. BI/SCREENING MAMM (CAD), BILAT IMPRESSION: Stable bilateral screening mammogram. Yearly follow-up mammogram recommended. (A) ASSESSMENT CATEGORY: BIRADS Category 1: Negative. A letter regarding these results will be sent to the patient by the facility within 30 days. Approximately 10% of breast cancers are not detected by mammography. A normal mammogram should not delay biopsy of a clinically suspicious abnormality. [id number] Electronically Signed: Rupesh Price, at 13:45 EST , Service support ,
== END ==
PROVIDERS: Family Provider Family Medicine; PCP Family Medicine; Referring Provider Internal Medicine Infectious Disease; Visit Provider Internal Medicine Infectious Disease
DX: Z12.31 Encounter for screening mammogram for malignant neoplasm of breast (principal)
CPT/HCPCS: 77063; 77067